=== PATIENT | female | born 1950 | race Caucasian/White ===

== ENCOUNTER 2017-10-29 14:19 | Outpatient (CLI) | payer MEDICARE ==
--- NOTE | 2017-10-31 13:32 | DEXA Report ---
REVISED: REPORT ORIGINALLY SIGNED ON 10/31/2017@1503; ORDERS LINKED ON 2017 jll DEXA SCAN: 10/29/2017 CLINICAL INDICATION: Primary hyperparathyroidism. TECHNIQUE: Dual energy x-ray absorptiometry (DXA) was performed on a [employer] system. Regions measured are the AP spine, femoral neck, and, if needed, forearm. COMPARISON: None. In accordance with the International Society for Clinical Densitometry (ISCD) guidelines, data from previous exams may be reanalyzed using current recommendations and techniques. This is done to allow a more accurate basis for comparison with the current study. FINDINGS Data for the lumbar spine is as follows: REGION BMD (g/cm/cm) T-SCORE Z-SCORE L1 0.691 -3.7 -1.1 L2 0.800 -3.3 -0.8 L3 0.811 -3.2 -0.7 L4 0.797 -3.4 -0.8 L1-L4 0.777 -3.4 -0.8 NOTE: All evaluable vertebrae are used for classification. Data for the hip is as follows: REGION BMD (g/cm/cm) T-SCORE Z-SCORE Neck 0.642 -2.8 -0.6 TOTAL 0.615 -3.1 -1.0 NOTE: The femoral neck or total proximal femur, whichever is lowest, is used for classification. Data for the forearm is as follows: REGION BMD (g/cm/cm) T-SCORE Z-SCORE 07/17 0.536 -3.9 -2.1 NOTE: The 33% radius of the nondominant forearm is used for classification. IMPRESSION WHO CLASSIFICATION BASED ON THE INTERNATIONAL REFERENCE STANDARD IS OSTEOPOROSIS. FRACTURE RISK IS HIGH. Forearm evaluation performed due to hyperparathyroidism. RECOMMENDATION: Patients with diagnosis of osteoporosis or osteopenia should have regular bone mineral density assessment. For those eligible for Medicare, routine testing is allowed once every 2 years. Testing frequency can be increased for patients who have rapidly progressing disease or for those who are receiving medical therapy to restore bone mass. COMMENT World Health Organization (WHO) definitions for osteoporosis and osteopenia: NORMAL BMD: T-score at 1.0 or higher, fracture risk is low. OSTEOPENIA BMD: T-score between 1.0 and -2.5, fracture risk is increased. OSTEOPOROSIS BMD: T-score at 2.5 or lower, fracture risk high. National Osteoporosis Foundation recommends: 1. Obtain adequate dietary calcium (at least 1200 mg per day) and vitamin D (400 -800 international units per day). 2. Participate, as appropriate, in regular weightbearing and muscle- strengthening exercise. 3. Avoid tobacco use and reduce alcohol and caffeine intake. 4. For more detailed information see the website at www.NOF.org. TD: 10/29/2017 17:35 GAY
== END 2017-10-29 14:20 | disposition home or self-care (01) ==
LOC: DI 14:19
PROVIDERS: ATTEND Internal Medicine Endocrinology, Diabetes & Metabolism
DX: M81.0 Age-related osteoporosis without current pathological fracture (principal)
CPT/HCPCS: 77080; 77081

== ENCOUNTER 2018-10-22 00:14 | Outpatient (CLI) | payer SELFPAY | END 2018-10-22 00:15 | disposition EMS.NT | LOC: EMS 00:14 | PROVIDERS: ATTEND Surgery | DX: R55 Syncope and collapse (principal); R51 Headache; W19.XXXA Unspecified fall, initial encounter; Y93.E8 Activity, other personal hygiene; Y92.002 Bathroom of unspecified non-institutional (private) residence as the place of occurrence of the external cause ==

== ENCOUNTER 2020-09-15 08:47 | Outpatient (CLI) | payer MEDICARE ==
[2020-09-15 12:05] LABS: BASOPHILS % (AUTO) 0.5 %; EOSINOPHILS # (AUTO) 0.1 10^3/uL (0.0-0.7); EOSINOPHILS % (AUTO) 2.4 %; HCT - HEMATOCRIT 45.4 % (37.0-47.0); HGB - HEMOGLOBIN 14.1 g/dL (12.0-16.0); LYMPHOCYTES % (AUTO) 27.7 %; MEAN CORPUSCULAR HEMOGLOBIN 30.7 pg (27.0-31.0); MEAN CORPUSCULAR HGB CONC 31.1 g/dL (32.0-36.0); MEAN CORPUSCULAR VOLUME 98.9 fL (81.0-99.0); MEAN PLATELET VOLUME 9.3 fL (7.9-10.8); MONOCYTES # (AUTO) 0.3 10^3/uL (0.0-1.0); MONOCYTES % (AUTO) 7.8 %; NEUTROPHILS # (AUTO) 2.3 10^3/uL (1.5-6.6); NEUTROPHILS % (AUTO) 61.3 %; PLT - PLATELET COUNT 228 10^3/uL (130-450); RED BLOOD COUNT 4.59 10^6/uL (4.20-5.40); RED CELL DISTRIBUTION WIDTH 13.1 % (12.0-15.0); WHITE BLOOD COUNT 3.7 x10^3/uL (4.8-10.8)
[2020-09-15 12:18] LABS: ALBUMIN 4.6 g/dL (3.2-5.5); ALBUMIN/GLOBULIN RATIO 1.6 (1.0-2.2); ALKALINE PHOSPHATASE 68 IU/L (42-121); ALT ALANINE AMINOTRANSFERASE 18 IU/L (10-60); AST ASPARTATE AMINOTRANSFERASE 42 IU/L (10-42); BILIRUBIN,TOTAL 0.9 mg/dL (0.2-1.0); BUN - BLOOD UREA NITROGEN 13 mg/dL (6-20); CALCIUM 11.6 mg/dL (8.5-10.3); CARBON DIOXIDE - CO2 28 mmol/L (21-32); CHLORIDE 100 mmol/L (101-111); CHOL/HDL RATIO 1.9 (<4.4); CHOLESTEROL 221 mg/dL; CREATININE 0.9 mg/dL (0.4-1.0); GFR - MDRD 62 (>89); GLUCOSE 98 mg/dL (70-100); HDL CHOLESTEROL 117 mg/dL; LDL CHOLESTEROL,CALCULATED 95 mg/dL; LDL/HDL RATIO 0.8 (<4.4); POTASSIUM 3.8 mmol/L (3.5-5.0); SODIUM 140 mmol/L (135-145); TOTAL PROTEIN 7.5 g/dL (6.7-8.2); TRIGLYCERIDES 47 mg/dL; VLDL CHOLESTEROL 9 mg/dL
[2020-09-15 12:45] LABS: THYROID STIMULATING HORMONE 2.32 uIU/mL (0.34-5.60)
== END 2020-09-15 08:48 | disposition home or self-care (01) ==
LOC: LAB.N 08:47
PROVIDERS: ATTEND Family Medicine
DX: M81.0 Age-related osteoporosis without current pathological fracture (principal); I10 Essential (primary) hypertension; E21.0 Primary hyperparathyroidism
CPT/HCPCS: 36415; 80053; 80061; 83721; 84443; 85025

== ENCOUNTER 2020-09-22 08:00 | Outpatient (CLI) | payer MEDICARE | END 2020-09-22 23:59 | disposition home or self-care (01) | LOC: LAB.WCP 08:00 | PROVIDERS: ATTEND Family Medicine | DX: R19.7 Diarrhea, unspecified (principal) | CPT/HCPCS: 81599; 87045; 87046; 87177; 87209; 87329; 87427; 87493 ==

== ENCOUNTER 2020-10-13 12:17 | Outpatient (CLI) | payer MEDICARE ==
[2020-10-13] MEDS ORDERED: IOPAMIDOL-300 50 ML VIAL ONE (12:45)
[2020-10-13] MEDS ORDERED: IOVERSOL 320 100 ML VIAL IVP ONE ×2 (12:45→14:20)
[2020-10-13] MEDS ORDERED: IOPAMIDOL-300 50 ML VIAL PO ONE (14:21)
--- NOTE | 2020-10-13 15:08 | CT Report ---
PROCEDURE: Abdomen/Pelvis W INDICATIONS: DIVERTICULAR DISEASE CONTRAST: IV CONTRAST: Optiray 320 ml: 90 PO CONTRAST: Isovue 300 ml50 TECHNIQUE: After the administration of oral and intravenous contrast, 5 mm thick sections acquired from the diap hragms to the symphysis. 5 mm thick coronal and sagittal reformats were acquired. For radiation dos e reduction, the following was used: automated exposure control, adjustment of mA and/or kV accordin g to patient size. COMPARISON: None. FINDINGS: Image quality: Excellent. ABDOMEN: Lung bases: Lung bases are clear. Heart size is normal. Solid organs: Liver and spleen are normal in size and enhancement. Gallbladder contains small galls tones. No gallbladder wall thickening or fluid around the gallbladder. Biliary system is non dilated . Pancreas enhances normally. Mildly prominent pancreatic duct, not frankly dilated. No adrenal nodu les. Kidneys demonstrate normal size and enhancement, without hydronephrosis. Peritoneum and bowel: Bowel loops demonstrate normal wall thickness and caliber. No free fluid or a ir. There appears to have been previous sigmoid resection. There is no significant diverticular disea se identified. Nodes and vessels: No retroperitoneal or mesenteric adenopathy by size criteria. Aorta and inferior vena cava are normal in size. Miscellaneous: No ventral hernias. PELVIS: Genitourinary: Bladder wall thickness is normal. Miscellaneous: No inguinal hernias or adenopathy. Bones: No suspicious bony lesions. No vertebral body compression fractures. There is probably S-sha ped thoracolumbar scoliotic curvature. Dextro curvature is centered at L2. IMPRESSION: 1. Incidental note made of cholelithiasis. 2. Scoliotic curvature. 3. Otherwise unremarkable CT of the abdomen and pelvis with contrast. Reviewed by: Jose Bartlett MD on 10/13/2020 3:07 PM PDT Approved by: Jose Bartlett MD on 10/13/2020 3:07 PM PDT Station ID: [id number]
== END 2020-10-13 12:18 | disposition home or self-care (01) ==
LOC: DI 12:17
PROVIDERS: ATTEND Surgery
DX: K57.90 Diverticulosis of intestine, part unspecified, without perforation or abscess without bleeding (principal); K80.20 Calculus of gallbladder without cholecystitis without obstruction
CPT/HCPCS: 74177; Q9967

== ENCOUNTER 2020-10-25 07:17 | Day surgery (SDC) | payer MEDICARE ==
[2020-10-25] MEDS ORDERED: LACTATED RINGERS 1,000 ML IV ONE ×2 (07:58→09:11)
[2020-10-25] MEDS ORDERED: fentaNYL 100 MCG/2 ML VIAL ONE (08:25)
[2020-10-25] MEDS ORDERED: MIDAZOLAM 2 MG/2 ML VIAL ONE (08:25)
[2020-10-25 09:47] VITALS: BP 139/63
== END 2020-10-25 07:18 | disposition home or self-care (01) ==
LOC: SDS 07:17
PROVIDERS: ATTEND Surgery
PROC: 0DBL8ZX Excision of Transverse Colon, Via Natural or Artificial Opening Endoscopic, Diagnostic (ICD-10-PCS; 2020-10-25)
PROC: 0DBP8ZX Excision of Rectum, Via Natural or Artificial Opening Endoscopic, Diagnostic (ICD-10-PCS; 2020-10-25)
PROC: 0DBM8ZX Excision of Descending Colon, Via Natural or Artificial Opening Endoscopic, Diagnostic (ICD-10-PCS; 2020-10-25)
PROC: 0DBK8ZX Excision of Ascending Colon, Via Natural or Artificial Opening Endoscopic, Diagnostic (ICD-10-PCS; principal; 2020-10-25 08:30)
DX: R19.4 Change in bowel habit (principal); R19.7 Diarrhea, unspecified; I10 Essential (primary) hypertension
CPT/HCPCS: 45380; J7120

== ENCOUNTER 2021-07-19 07:00 | Outpatient (CLI) | payer MEDICARE ==
[2021-07-19 18:19] LABS: BASOPHILS % (AUTO) 0.3 %; EOSINOPHILS # (AUTO) 0.1 10^3/uL (0.0-0.7); EOSINOPHILS % (AUTO) 1.2 %; HCT - HEMATOCRIT 43.8 % (37.0-47.0); HGB - HEMOGLOBIN 13.8 g/dL (12.0-16.0); LYMPHOCYTES # (AUTO) 1.1 10^3/uL (1.5-3.5); LYMPHOCYTES % (AUTO) 16.1 %; MEAN CORPUSCULAR HEMOGLOBIN 31.2 pg (27.0-31.0); MEAN CORPUSCULAR HGB CONC 31.5 g/dL (32.0-36.0); MEAN CORPUSCULAR VOLUME 99.1 fL (81.0-99.0); MEAN PLATELET VOLUME 9.3 fL (7.9-10.8); MONOCYTES # (AUTO) 0.5 10^3/uL (0.0-1.0); MONOCYTES % (AUTO) 6.8 %; NEUTROPHILS # (AUTO) 5.1 10^3/uL (1.5-6.6); NEUTROPHILS % (AUTO) 75.5 %; PLT - PLATELET COUNT 266 10^3/uL (130-450); RED BLOOD COUNT 4.42 10^6/uL (4.20-5.40); RED CELL DISTRIBUTION WIDTH 12.4 % (12.0-15.0); WHITE BLOOD COUNT 6.8 x10^3/uL (4.8-10.8)
[2021-07-19 18:30] LABS: ALBUMIN 4.6 g/dL (3.2-5.5); ALBUMIN/GLOBULIN RATIO 1.6 (1.0-2.2); BILIRUBIN,TOTAL 0.9 mg/dL (0.2-1.0); CALCIUM 11.5 mg/dL (8.5-10.3); CREATININE 0.8 mg/dL (0.4-1.0); POTASSIUM 3.9 mmol/L (3.5-5.0); TOTAL PROTEIN 7.4 g/dL (6.7-8.2)
[2021-07-19 18:38] LABS: THYROID STIMULATING HORMONE 1.55 uIU/mL (0.34-5.60)
[2021-07-19 18:50] LABS: BILIRUBIN,URINE NEGATIVE (NEGATIVE); GLUCOSE, URINE (UA) NEGATIVE (NEGATIVE); KETONES,URINE (UA) NEGATIVE (NEGATIVE); LEUKOCYTE ESTERASE, URINE NEGATIVE (NEGATIVE); NITRITE,URINE POSITIVE (NEGATIVE); OCCULT BLOOD,URINE NEGATIVE (NEGATIVE); PH,URINE 6.5 PH (5.0-7.5); PROTEIN,URINE TRACE mg/dL (NEGATIVE); UROBILINOGEN,URINE 0.2 (NORMAL) E.U./dL (NORMAL)
[2021-07-19 18:53] LABS: CLARITY,URINE CLOUDY (CLEAR)
[2021-07-19 19:16] LABS: AMORPHOUS SEDIMENT,UR Marked /LPF; BACTERIA,URINE Many /HPF (None Seen); RBC,URINE 0-5 /HPF (0-5); SQUAMOUS EPITHELIAL CELL,UR RARE Squamous (<= Few); WBC,URINE 0-3 /HPF (0-5)
== END 2021-07-19 23:59 | disposition home or self-care (01) ==
LOC: LAB.WCP 07:00
PROVIDERS: ATTEND Family Medicine
DX: E21.0 Primary hyperparathyroidism (principal); R63.4 Abnormal weight loss; R35.0 Frequency of micturition; G31.84 Mild cognitive impairment of uncertain or unknown etiology
CPT/HCPCS: 36415; 80053; 81001; 81599; 82306; 82330; 82607; 83970; 84443; 85025; 86592; 87077; 87086

== ENCOUNTER 2021-08-09 09:43 | Outpatient (CLI) | payer MEDICARE ==
[2021-08-09] MEDS ORDERED: GADOBUTROL 7.5 MMOL/7.5 ML VIAL ONE (10:06)
--- NOTE | 2021-08-09 11:23 | MRI Report ---
PROCEDURE: Brain W/WO INDICATIONS: COGNITINE IMPAIRMENT CONTRAST: IV CONTRAST: Gadavist ml: 3.7 TECHNIQUE: Noncontrast axial T1 spin echo, axial T2 fast spin echo, sagittal and axial FLAIR, coronal T2 fast sp in echo, axial gradient echo, axial diffusion and ADC through the brain. After the administration of contrast, axial and coronal T1 spin echo with fat saturation through the brain. COMPARISON: None. FINDINGS: Image quality: Excellent. CSF spaces: Basal cisterns are patent. No extra-axial fluid collections. Ventricles are normal in size and shape. Brain: No midline shift. No intracranial bleeds or masses. No abnormal intracranial enhancement. There is cerebral volume loss for age. There is periventricular white matter chronic small vessel is chemic change. The brainstem appears normal. Diffusion-weighted images demonstrate no acute ischemi c insults. No chronic ischemic insults. Normal intravascular flow voids are present. Skull and face: Calvarial marrow is normal in signal. Orbits appear normal. Sinuses: Mild left maxillary sinus mucosal thickening. Complete opacification of the right maxillary sinus. Remaining sinuses are clear. IMPRESSION: 1. Volume loss and small vessel ischemic disease. 2. No acute process. No recent infarct. Reviewed by: Viekla Gonzalez MD on 08/09/2021 11:22 AM [facility] Approved by: Vielka Gonzalez MD on 08/09/2021 11:22 AM [facility] Station ID: [id number]
[2021-08-09] MEDS: GADOBUTROL 7.5 MMOL/7.5 ML VIAL IVP ONE (16:34)
== END 2021-08-09 09:44 | disposition home or self-care (01) ==
LOC: DI 09:43
PROVIDERS: ATTEND Family Medicine
DX: G31.84 Mild cognitive impairment of uncertain or unknown etiology (principal); G31.89 Other specified degenerative diseases of nervous system; I67.82 Cerebral ischemia
CPT/HCPCS: 70553; A9585

== ENCOUNTER 2022-11-27 13:11 | Outpatient (CLI) | payer MEDICARE | END 2022-11-27 23:59 | disposition critical access hospital (66) | LOC: EMS 13:11 | DX: R41.82 Altered mental status, unspecified (principal); W18.30XA Fall on same level, unspecified, initial encounter; Y92.008 Other place in unspecified non-institutional (private) residence as the place of occurrence of the external cause; F10.90 Alcohol use, unspecified, uncomplicated | CPT/HCPCS: A0425; A0429 ==

== ENCOUNTER 2022-11-27 13:31 | Emergency (ER) | payer MEDICARE, OTHER ==
[2022-11-27 13:57] LABS: BASOPHILS % (AUTO) 0.3 %; EOSINOPHILS # (AUTO) 0.1 10^3/uL (0.0-0.7); EOSINOPHILS % (AUTO) 1.9 %; HCT - HEMATOCRIT 39.2 % (37.0-47.0); HGB - HEMOGLOBIN 12.5 g/dL (12.0-16.0); LYMPHOCYTES # (AUTO) 1.8 10^3/uL (1.5-3.5); MEAN CORPUSCULAR HEMOGLOBIN 31.4 pg (27.0-31.0); MEAN CORPUSCULAR HGB CONC 31.9 g/dL (32.0-36.0); MEAN CORPUSCULAR VOLUME 98.5 fL (81.0-99.0); MEAN PLATELET VOLUME 8.3 fL (7.9-10.8); MONOCYTES # (AUTO) 0.5 10^3/uL (0.0-1.0); MONOCYTES % (AUTO) 6.6 %; NEUTROPHILS # (AUTO) 4.4 10^3/uL (1.5-6.6); NEUTROPHILS % (AUTO) 65.1 %; PLT - PLATELET COUNT 185 10^3/uL (130-450); RED BLOOD COUNT 3.98 10^6/uL (4.20-5.40); RED CELL DISTRIBUTION WIDTH 13.5 % (12.0-15.0); WHITE BLOOD COUNT 6.8 x10^3/uL (4.8-10.8)
[2022-11-27 14:13] LABS: ALBUMIN 4.1 g/dL (3.2-5.5); ALBUMIN/GLOBULIN RATIO 1.6 (1.0-2.2); CALCIUM 8.6 mg/dL (8.5-10.3); CREATININE 0.8 mg/dL (0.4-1.0); ETOH - ETHANOL 191.7 mg/dL; POTASSIUM 3.5 mmol/L (3.5-5.0); TOTAL PROTEIN 6.7 g/dL (6.7-8.2)
--- NOTE | 2022-11-27 14:20 | ED Physician Documentation ---
History of Present Illness - Stated complaint Stated Complaint: GLF - Chief complaint Chief Complaint: Neuro - History obtained from History obtained from: EMS - Additonal information Additional information: Patient is a 72-year-old female with a history of dementia brought in from home after an unwitnessed ground-level fall. Patient's reportedly heard a thud and found patient laying on her back.She does not take a blood thinner. She does have dementia but felt she seems more confused than her baseline. He did find an empty bottle of wine that he did not drink in the house.When asked if she has any areas of pain patient states no. She is able to tell me her name and follow commands but otherwise not able to provide any meaningful history. Review of Systems Unable to obtain: Dementia PD PAST MEDICAL HISTORY - Past Medical History Cardiovascular: Hypertension Respiratory: None Endocrine/Autoimmune: HyPERthyroidism GI: Diverticulitis : None HEENT: None Psych: None Musculoskeletal: None Derm: None - Past Surgical History General: Bowel surgery - Present Medications Home Medications: Ambulatory Orders Medication Instructions Recorded Confirmed Herlong Extract [Herlong] 150 mg PO DAILY 08/04/13 09/02/15 Carditone 1 cap PO DAILY 02/21/17 10/25/20 Cholecalciferol (Vitamin D3) 2,000 unit PO DAILY 02/21/17 [Vitamin D] Biotin 5,000 mcg PO DAILY 10/25/20 10/25/20 Cyanocobalamin (Vitamin B-12) 2,000 mcg PO DAILY 10/25/20 10/25/20 [Vitamin B-12] Magnesium Oxide [Magnesium] 1 tab PO DAILY 10/25/20 10/25/20 - Allergies Allergies/Adverse Reactions: Allergies Allergy/AdvReac Type Severity Reaction Status Date / Time morphine AdvReac Intermediate Hallucinati Verified 11/27/22 13:44 ons PD ED PE NORMAL - General General: No acute distress, Well developed/nourished. No: Alert and oriented X 3 (Alert and oriented to person) - HEENT HEENT: Atraumatic, PERRL, EOMI, Moist mucous membranes, Pharynx benign - Neck Neck: No bony TTP. No: C-Spine cleared by NEXUS criteria (Dementia, possible intoxication) - Cardiac Cardiac: RRR, No murmur - Respiratory Respiratory: No respiratory distress, Clear bilaterally - Abdomen Abdomen: Soft, Non tender, Non distended - Derm Derm: Warm and dry - Extremities Extremities: No edema - Neuro Neuro: No motor deficit, Normal speech. No: Alert and oriented X 3 (Alert and oriented to person) Eye Opening: Spontaneous Motor: Obeys Commands Verbal: Confused GCS Score: 14 Results - Vitals Vitals: Vital Signs - 24 hr 11/27/22 11/27/22 13:40 18:29 Temperature 36.3 C L Heart Rate 64 71 Respiratory 16 18 Rate Blood Pressure 156/90 H 134/84 H O2 Saturation 96 99 Oxygen O2 Source Room air - Labs Labs: Laboratory Tests 11/27/22 11/27/22 13:51 13:51 WBC 6.8 RBC 3.98 L Hgb 12.5 Hct 39.2 MCV 98.5 MCH 31.4 H MCHC 31.9 L RDW 13.5 Plt Count 185 MPV 8.3 Neut # (Auto) 4.4 Lymph # (Auto) 1.8 [place] # (Auto) 0.5 Eos # (Auto) 0.1 Baso # (Auto) 0.0 Absolute Nucleated RBC 0.00 Nucleated RBC % 0.0 Sodium 140 Potassium 3.5 Chloride 102 Carbon Dioxide 26 Anion Gap 12.0 BUN 15 Creatinine 0.8 Estimated GFR (MDRD) 70 L Glucose 112 H Calcium 8.6 Total Bilirubin 1.0 AST 57 H ALT 23 Alkaline Phosphatase 41 L Total Protein 6.7 Albumin 4.1 Globulin 2.6 Albumin/Globulin Ratio 1.6 Ethyl Alcohol 191.7 PD Medical Decision Making - ED course Complexity details: reviewed results, re-evaluated patient, d/w family ED course: Patient is a 72-year-old female with a history of dementia presenting for evaluation of an unwitnessed fall.Patient has no signs of injury on her. Given her dementia and lack of ability to give us any reliable history a head CT and cervical spine were obtained which I reviewed and see no signs of acute injuries. CBC, chemistry and EtOH level were obtained. Patient has an elevated EtOH level of 191. Her is present and states that she in the past had issues with drinking alcohol but he had It at the house up until yesterday when he got a bottle of wine. She drank the wine unknowing to him. Patient has been ambulating here and was monitored for several hours.She did initially Requires some assistance with ambulation as she appeared unsteady on her feet. However during her time in the emergency department she did become more steady and was acting closer to her baseline per the . She was becoming agitated wanting to get out of the bed which he states can occur when she is out of her environment. He feels comfortable taking her home and Does not want to stay in the emergency department any longer. She does not take any medications for behavioral issues in regards to her dementia. He was counseled on being cautious with having alcohol Around the patient. He is advised on concerning symptoms to return for. Departure - Departure Disposition: 01 Home, Self Care Clinical Impression: Fall at home, Dementia, Alcohol intoxication Condition: Stable Instructions: ED Alcohol Intoxication, ED Prevention Fall Comments: Your CT head and cervical spine today do not show any injuries from your fall. Your alcohol level was quite elevated. This has made you unsteady on your feet and at risk for falling. Please be cautious with alcohol in the future. Please have close follow-up with your primary care provider. Discharge Date/Time: 11/27/22 18:30
--- NOTE | 2022-11-27 14:40 | CT Report ---
PROCEDURE: HEAD WO INDICATIONS: unwitnessed fall/dementia TECHNIQUE: Noncontrast 4.5 mm thick angled axial sections acquired from the foramen magnum to the vertex. For r adiation dose reduction, the following was used: automated exposure control, adjustment of mA and/or kV according to patient size. COMPARISON: 08/09/2021 MRI FINDINGS: Image quality: There is motion artifact and beam hardening. CSF spaces: Basal cisterns are patent. Lateral ventricles are symmetric. Volume: Vascular calcifications. Periventricular white matter disease is commonly seen with chronic m icroangiopathy. Volume loss is present. These findings are moderate. Brain: No intracranial hemorrhage. Scott-white differentiation is grossly maintained. Craniofacial structures: Partially seen partial opacification of the sinuses. IMPRESSION: Limited CT due to artifact. No acute intracranial abnormality. Reviewed by: Reji Mcclain MD on 11/27/2022 2:39 PM PDT Approved by: Reji Mcclain MD on 11/27/2022 2:39 PM PDT Station ID: [id number]
--- NOTE | 2022-11-27 15:37 | CT Report ---
PROCEDURE: CERVICAL SPINE WO INDICATIONS: unwitnessed fall/dementia TECHNIQUE: Noncontrast 3 mm thick sections acquired from the skull base to the T4 level. Sagittal and coronal r eformats were then constructed. For radiation dose reduction, the following was used: automated exp osure control, adjustment of mA and/or kV according to patient size. COMPARISON: None. FINDINGS: Image quality: Good Bones: Mild to moderate degenerative changes in the cervical spine. No acute vertebral body height lo ss or traumatic subluxation. Soft tissues: No pathologic prevertebral soft tissue swelling. No apical pneumothorax. There are susp ected biapical scarring. Surgical clips in the neck. Partially seen paranasal sinus opacification. IMPRESSION: Mild to moderate degenerative changes without acute fracture or traumatic subluxation. If there is hi gh concern for further derangement, consider MRI evaluation. : Reviewed by: Reji Mcclain MD on 11/27/2022 3:36 PM PDT Approved by: Reji Mcclain MD on 11/27/2022 3:36 PM PDT Station ID: [id number]
[2022-11-27 18:31] VITALS: BP 134/84
== END 2022-11-27 18:30 | disposition home or self-care (01) ==
LOC: EDUNIT# → ED 13:31
DX: F10.129 Alcohol abuse with intoxication, unspecified (principal); Y90.6 Blood alcohol level of 120-199 mg/100 ml; W19.XXXA Unspecified fall, initial encounter; Y92.009 Unspecified place in unspecified non-institutional (private) residence as the place of occurrence of the external cause; F03.90 Unspecified dementia, unspecified severity, without behavioral disturbance, psychotic disturbance, mood disturbance, and anxiety
CPT/HCPCS: 36415; 70450; 72125; 80053; 85025; 99283; 99284; G0480; 80320

== ENCOUNTER 2022-12-28 10:57 | Outpatient (CLI) | payer MEDICARE ==
--- NOTE | 2022-12-28 16:15 | XRAY Report ---
PROCEDURE: Ankle 3 View RT INDICATIONS: UNSPECIFIED INJURY OF RIGHT ANKLE TECHNIQUE: 3 views of the ankle were acquired. COMPARISON: None. FINDINGS: Bones: Generalized osteopenia. No acute fractures or dislocations. Ankle mortise is normally aligne d. No suspicious bony lesions. Soft tissues: Soft tissue edema seen surrounding the ankle. IMPRESSION: Nonspecific soft tissue edema. No acute osseous abnormality. If there is clinical concern or persiste nt symptoms, additional imaging such as repeat radiographs or advanced imaging (e.g. CT, MRI) may be helpful for further evaluation. Reviewed by: Terry Pérez MD on 12/28/2022 4:14 PM PDT Approved by: Terry Pérez MD on 12/28/2022 4:14 PM PDT Station ID: [id number]
== END 2022-12-28 23:59 | disposition home or self-care (01) ==
LOC: DI.N 10:57
PROVIDERS: ATTEND Nurse Practitioner
DX: S99.911A Unspecified injury of right ankle, initial encounter (principal)

== ENCOUNTER 2024-03-16 17:09 | Outpatient (CLI) | payer MEDICARE | END 2024-03-16 23:59 | disposition EMS.NT | LOC: EMS 17:09 | DX: T17.928A Food in respiratory tract, part unspecified causing other injury, initial encounter (principal); W44.F3XA Food entering into or through a natural orifice, initial encounter ==

== ENCOUNTER 2024-04-05 15:40 | Outpatient (CLI) | payer MEDICARE | END 2024-04-05 23:59 | disposition EMS.NT | LOC: EMS 15:40 | DX: Z03.89 Encounter for observation for other suspected diseases and conditions ruled out (principal) ==